=== PATIENT | female | born 1970 | race Caucasian/White ===

== ENCOUNTER 2017-08-03 09:52 | Emergency (ER) | payer SELFPAY ==
[2017-08-03 10:18] LABS: Absolute Lymphocytes (CBC) 1.6 K/uL (0.7-4.9); Absolute Monocytes 0.6 K/uL (0.1-1.3); Absolute Neutrophil 1.5 K/uL (1.8-8.0); Basophils % 0.2 % (0-1.3); Eosinophils % 6.9 % (0-4.4); Hematocrit 34.6 % (36.0-45.0); Lymphocytes % 40.6 % (15.3-44.8); MCH 29.3 pg (27.0-35.0); MCV 87.9 fL (80-100); MPV 8.9 fL (7.6-11.3); Monocytes % 14.1 % (3.3-12.3); RBC Red Blood Cell Count 3.93 M/uL (3.86-4.86)
[2017-08-03 10:21] LABS: Urine Blood NEGATIVE (NEG); Urine Glucose NEGATIVE (NEG); Urine Protein NEGATIVE (NEG)
[2017-08-03 10:24] LABS: Protime INR 0.97
[2017-08-03 10:26] LABS: Magnesium 1.8 mg/dL (1.8-2.5); Potassium 4.3 mEq/L (3.6-5.0)
--- NOTE | 2017-08-03 11:16 | RAD REPORT ---
EXAM DESCRIPTION: RAD - Chest Single View - 08/03/2017 10:31 am CLINICAL HISTORY: Chest pain radiating to the jaw COMPARISON: None. TECHNIQUE: AP portable chest image was obtained 1029 hours . FINDINGS: Lungs are clear. Heart and vasculature are normal. No measurable pleural effusion and no p neumothorax. No gross bony abnormality seen. No acute aortic findings suspected. IMPRESSION: No acute cardiopulmonary process.
--- NOTE | 2017-08-03 11:17 | ER ---
Nurse's Notes [facility] Name: Yumiko Castañeda Age: 47 yrs Sex: Female : 1970 Arrival Date: 08/03/2017 Time: 09:50 Bed 18 Private MD: Diagnosis: Chest pain, unspecified Presentation: 08/03 09:50 Presenting complaint: EMS states: chest pain started today at 0915, Jaw pain for the ch past few days. took asa 324 from her daughter prior to ems arrival. Transition of care: patient was not received from another setting of care. Onset of symptoms was August 03, 2017 at 09:15. Initial Sepsis Screen: Does the patient meet any 2 criteria? No. Patient's initial sepsis screen is negative. Does the patient have a suspected source of infection? No. Patient's initial sepsis screen is negative. Care prior to arrival: None. 09:50 Method Of Arrival: EMS: [facility] 09:50 Acuity: LARISSA 3 ch Triage Assessment: 09:50 General: Appears in no apparent distress. comfortable, Behavior is calm, cooperative, ch appropriate for age. Pain: Complains of pain in chest. Cardiovascular: Reports chest pain. 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 Pneumococcal vaccine is not up to date, Flu vaccine is not up to date. - Social history:: Smoking status: Patient uses tobacco products. Screenin:11 Abuse screen: Denies threats or abuse. Denies injuries from another. Nutritional ch screening: No deficits noted. Tuberculosis screening: No symptoms or risk factors identified. Fall Risk None identified. Assessment: 11:33 Reassessment: Patient appears in no apparent distress at this time. Patient and/or ch family updated on plan of care and expected duration. Pain level reassessed. Patient is alert, oriented x 3, equal unlabored respirations, skin warm/dry/pink. hospitalist in room with pt now Patient denies pain at this time. Patient states feeling better. Patient states symptoms have improved. 13:30 Also complains of no other symptoms. Reassessment: Patient appears in no apparent ch distress at this time. Patient and/or family updated on plan of care and expected duration. Pain level reassessed. Patient is alert, oriented x 3, equal unlabored respirations, skin warm/dry/pink. Patient denies pain at this time. Patient states feeling better. Patient states symptoms have improved. 14:51 Reassessment: Patient appears in no apparent distress at this time. Patient and/or ch family updated on plan of care and expected duration. Pain level reassessed. Patient is alert, oriented x 3, equal unlabored respirations, skin warm/dry/pink. Patient states feeling better. Patient states symptoms have improved. Pain: Pain does not radiate. Pain currently is 0 out of 10 on a pain scale. Pain began suddenly. 14:53 Reassessment: Patient appears in no apparent distress at this time. Dr. Hernandez contacted about pt labs. awaiting return call. 15:11 Reassessment: Patient appears in no apparent distress at this time. Patient and/or ch family updated on plan of care and expected duration. Pain level reassessed. Patient is alert, oriented x 3, equal unlabored respirations, skin warm/dry/pink. Dr. Hernandez notified about pt status and lab results, states pt is to be discharged home. Vital Signs: 09:50 BP 139 / 92; Pulse 74; Resp 14; Temp 97.2; Pulse Ox 98% on R/A; Weight 77.11 kg; Height 5 ft. 2 in. (157.48 cm); Pain 2/10; 10:58 BP 125 / 85; Pulse 68; Resp 14; Pulse Ox 99% on R/A; Pain 0/10; ch 12:00 BP 118 / 76; Pulse 62; Resp 14; Temp 98.3; Pulse Ox 99% on R/A; Pain 0/10; ch 13:30 BP 132 / 84; Pulse 63; Resp 18; Temp 98.8; Pulse Ox 99% on R/A; Pain 0/10; ch 14:53 BP 114 / 82; Pulse 68; Resp 18; Temp 98.3; Pulse Ox 99% on R/A; Pain 0/10; ch 15:11 BP 122 / 65; Pulse 62; Resp 18; Temp 98.8; Pulse Ox 99% on R/A; Pain 0/10; ch 09:50 Body Mass Index 31.09 (77.11 kg, 157.48 cm) ED Course: 09:50 Patient arrived in ED. ch 09:50 Arm band placed on left wrist. Patient placed in an exam room, on a stretcher, on manager monitoring, on pulse oximetry. 09:51 Triage completed. 09:52 Ann-Marie Corado FNP-C is [facility]. kb 09:52 Kvng Wells MD is Attending Physician. kb 10:00 EKG completed in triage. Results shown to MD. ch 10:10 Patient has correct armband on for positive identification. Placed in gown. Bed in low ch position. Call light in reach. Side rails up X 1. Adult w/ patient. court monitor on. Pulse ox on. NIBP on. 10:10 No provider procedures requiring assistance completed. Inserted saline lock: 22 gauge ch in right upper arm, using aseptic technique. Blood collected. Patient maintains SpO2 saturation greater than 95% on room air. 10:24 Enma Ruano, RN is Primary Nurse. 10:30 X-ray completed. Portable x-ray completed in exam room. Patient tolerated procedure la2 well. 10:30 XRAY Chest (1 view) In Process Unspecified. EDMS 11:16 Rhiannon Hernandez MD is Hospitalizing Provider. kb 14:42 Trevon Acosta MD is Referral Physician. kb 15:13 No apparent distress. Resting quietly. ch 15:13 IV discontinued, intact, bleeding controlled, No redness/swelling at site. Pressure ch dressing applied. Administered Medications: No medications were administered Outcome: 11:16 Decision to Hospitalize by Provider. kb 14:42 Discharge ordered by . kb 15:13 Discharged to home ambulatory, with family. ch 15:13 Condition: stable 15:13 Discharge instructions given to patient, family, Instructed on discharge instructions, follow up and referral plans. Demonstrated understanding of instructions, follow-up care. 15:13 Patient left the ED. Signatures: Dispatcher [employer] EDMN Ann-Marie Corado FNP-C FNP-Enma Nelson RN RN Lesly Woodruff la2 Corrections: (The following items were deleted from the chart) 10:25 09:50 LMP N/A - Post-menopause ch ch
--- NOTE | 2017-08-03 11:17 | EDPHYS ---
Physician Documentation [facility] Name: Yumiko Castañeda Age: 47 yrs Sex: Female : 1970 Arrival Date: 08/03/2017 Time: 09:50 Bed 18 Private MD: ED Physician Kvng Wells HPI: 08/03 10:16 This 47 yrs old Female presents to ER via EMS with complaints of Chest Pain. kb 10:16 The patient or guardian reports chest pain that is located primarily in the anterior kb chest wall, left. Onset: this morning. The pain does not radiate. Associated signs and symptoms: Pertinent positives: shortness of breath, Pertinent negatives: abdominal pain, cough, diaphoresis, dizziness, headache, lower extremity pain, lower extremity swelling, lightheadedness, nausea, near syncope, palpitations, recent travel, syncope, vomiting. The chest pain is described as tightness. Duration: The patient or guardian reports a single episode, that is now resolved, that lasted 30 minute(s). Modifying factors: The symptoms are alleviated by nothing. the symptoms are aggravated by nothing. Severity of pain: At its worst the pain was mild moderate in the emergency department the pain is unchanged. The patient has experienced similar episodes in the past, several times, today's symptoms are similar, lasted longer today. The patient has not recently seen a physician. Pt states she was riding in the car and felt tightness to left side of chest. States it lasted for about 30 minutes, then subsided. Has had similar "episodes" in the past, but they didn't last as long so she got worried about this one. 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 Pneumococcal vaccine is not up to date, Flu vaccine is not up to date. - Social history:: Smoking status: Patient uses tobacco products. ROS: 10:11 Constitutional: Negative for fever, chills, and weight loss, ENT: Negative for injury, kb pain, and discharge, Neck: Negative for injury, pain, and swelling, Abdomen/GI: Negative for abdominal pain, nausea, vomiting, diarrhea, and constipation, Back: Negative for injury and pain, : Negative for injury, bleeding, discharge, and swelling, MS/Extremity: Negative for injury and deformity, Skin: Negative for injury, rash, and discoloration, Neuro: Negative for headache, weakness, numbness, tingling, and seizure. 10:11 Cardiovascular: Positive for chest pain, Negative for edema, orthopnea, palpitations, paroxysmal nocturnal dyspnea. 10:11 Respiratory: Positive for shortness of breath, Negative for cough, dyspnea on exertion, hemoptysis, orthopnea, pleurisy, sputum production, wheezing. Exam: 10:14 Constitutional: This is a well developed, well nourished patient who is awake, alert, kb and in no acute distress. Head/Face: Normocephalic, atraumatic. Chest/axilla: Normal chest wall appearance and motion. Nontender with no deformity. No lesions are appreciated. Cardiovascular: Regular rate and rhythm with a normal S1 and S2. No gallops, murmurs, or rubs. Normal PMI, no JVD. No pulse deficits. Respiratory: Lungs have equal breath sounds bilaterally, clear to auscultation and percussion. No rales, rhonchi or wheezes noted. No increased work of breathing, no retractions or nasal flaring. Abdomen/GI: Soft, non-tender, with normal bowel sounds. No distension or tympany. No guarding or rebound. No evidence of tenderness throughout. Back: No spinal tenderness. No costovertebral tenderness. Full range of motion. Skin: Warm, dry with normal turgor. Normal color with no rashes, no lesions, and no evidence of cellulitis. MS/ Extremity: Pulses equal, no cyanosis. Neurovascular intact. Full, normal range of motion. Neuro: Awake and alert, GCS 15, oriented to person, place, time, and situation. Cranial nerves II-XII grossly intact. Motor strength 5/5 in all extremities. Sensory grossly intact. Cerebellar exam normal. Normal gait. Vital Signs: 09:50 BP 139 / 92; Pulse 74; Resp 14; Temp 97.2; Pulse Ox 98% on R/A; Weight 77.11 kg; Height ch 5 ft. 2 in. (157.48 cm); Pain 2/10; 10:58 BP 125 / 85; Pulse 68; Resp 14; Pulse Ox 99% on R/A; Pain 0/10; ch 12:00 BP 118 / 76; Pulse 62; Resp 14; Temp 98.3; Pulse Ox 99% on R/A; Pain 0/10; ch 13:30 BP 132 / 84; Pulse 63; Resp 18; Temp 98.8; Pulse Ox 99% on R/A; Pain 0/10; ch 14:53 BP 114 / 82; Pulse 68; Resp 18; Temp 98.3; Pulse Ox 99% on R/A; Pain 0/10; ch 15:11 BP 122 / 65; Pulse 62; Resp 18; Temp 98.8; Pulse Ox 99% on R/A; Pain 0/10; ch 09:50 Body Mass Index 31.09 (77.11 kg, 157.48 cm) ch MDM: 09:53 Patient medically screened. kb 10:13 Data reviewed: vital signs, nurses notes. Data interpreted: Pulse oximetry: on room air kb is 100 %. Interpretation: normal. 10:23 The patient was not given aspirin in the Emergency Department. Patient reports taking kb aspirin within the past 24 hours. 11:02 LAW Risk Score: TOTAL SCORE = 0. kb 11:02 ED course: HEART score 2 due to age and paternal history. . kb 11:03 Counseling: I had a detailed discussion with the patient and/or guardian regarding: the kb historical points, exam findings, and any diagnostic results supporting the discharge/admit diagnosis, lab results, radiology results, the need for further work-up and treatment in the hospital. 14:15 ED course: Pt was seen by Dr Matamoros. Dr Matamoros spoke with Dr Acosta about pt's condition kb and diagnostics. Both in agreement that pt needs a 4 hour repeat troponin and EKG, then (if wnl) can be discharged home to follow up with Dr Acosta on Saturday as an outpatient. . 08/03 09:53 Order name: Basic Metabolic Panel; Complete Time: 10:35 kb 08/03 09:53 Order name: BNP; Complete Time: 10:51 kb 08/03 09:53 Order name: CBC with Diff; Complete Time: 10:24 kb 08/03 09:53 Order name: Magnesium; Complete Time: 10:35 kb 08/03 09:53 Order name: PT-INR; Complete Time: 10:35 kb 08/03 09:53 Order name: Ptt, Activated; Complete Time: 10:35 kb 08/03 09:53 Order name: Urine Test (obtain specimen); Complete Time: 10:24 kb 08/03 09:53 Order name: Troponin (emerg Dept Use Only); Complete Time: 10:35 kb 08/03 09:53 Order name: XRAY Chest (1 view); Complete Time: 11:17 kb 08/03 09:53 Order name: EKG; Complete Time: 09:54 kb 08/03 10:13 Order name: Urine Dipstick--Ancillary (enter results); Complete Time: 10:24 ag 08/03 10:13 Order name: Urine --Ancillary (enter results); Complete Time: 10:24 ag 08/03 14:04 Order name: Troponin (emerg Dept Use Only) ms 08/03 14:35 Order name: Troponin (Emerg Dept Use Only); Complete Time: 14:42 EDMS 08/03 09:53 Order name: Cardiac monitoring; Complete Time: 10:24 kb 08/03 09:53 Order name: EKG - Nurse/Tech; Complete Time: 10:24 kb 08/03 09:53 Order name: IV Saline Lock; Complete Time: 10:24 kb 08/03 09:53 Order name: Labs collected and sent; Complete Time: 10:24 kb 08/03 09:53 Order name: O2 Per Protocol; Complete Time: 10:24 kb 08/03 09:53 Order name: O2 Sat Monitoring; Complete Time: 10:24 kb 08/03 09:53 Order name: Urine Dipstick-Ancillary (obtain specimen); Complete Time: 10:24 kb Administered Medications: No medications were administered Disposition: 18:53 Co-signature as Attending Physician, Kvng Wells MD. Disposition: 08/03/17 14:42 Discharged to Home. Impression: Chest pain, unspecified. - Condition is Stable. - Discharge Instructions: Nonspecific Chest Pain, [id number]. - Medication Reconciliation Form, Thank You Letter, Antibiotic Education, Prescription Opioid Use form. - Follow up: Emergency Department; When: As needed; Reason: Worsening of condition. Follow up: Trevon Acosta MD; When: 2 - 3 days; Reason: Recheck today's complaints. Signatures: Dispatcher [employer] EDMS Ann-Marie Corado, ORION-Vicente SEARS-Enma Nelson, RN RN Kvng Wells MD MD Corrections: (The following items were deleted from the chart) 10:12 10:11 Abdomen/GI: Positive for nausea, Negative for abdominal pain, vomiting, diarrhea, kb constipation, abdominal cramps, abdominal distension, anorexia, kb 11:11 11:02 ED course: HEART score 2 due to age and paternal history . kb kb 14:42 11:16 Hospitalization Ordered by Rhiannon Matamoros MD for Observation. Preliminary diagnosis kb is Chest pain, unspecified. Bed requested for Telemetry/MedSurg (observation). Status is Observation. Condition is Stable. Problem is new. Symptoms have improved. UTI on Admission? No. kb 15:13 14:42 08/03/2017 14:42 Discharged to Home. Impression: Chest pain, unspecified. Condition is Stable. Forms are Medication Reconciliation Form, Thank You Letter, Antibiotic Education, Prescription Opioid Use. Follow up: Emergency Department; When: As needed; Reason: Worsening of condition. Follow up: Trevon Acosta; When: 2 - 3 days; Reason: Recheck today's complaints. kb
[2017-08-03 15:17] VITALS: O2SAT 99
[2017-08-03 15:23] VITALS: BP 122/65; TEMP 98.8
--- NOTE | 2017-08-03 15:36 | P.PN ---
Date of Service: 08/03/17 Called to see patient regarding chest pain. Patient is a 47-year-old female with no significant past medical history who quit smoking approximately 5 years ago has been having intermittent chest tightness over the past few months. Has taken by family members nitro in the past which has helped. Patient today had recurrence of this chest tightness and came in denies any nausea vomiting fever chills cough sputum production. No diaphoresis or palpitations. Patient's symptoms had resolved by the time she came into the ER. Patient's vital signs were stable her initial workup showed negative troponin and EKG showed normal sinus rhythm, no ST or T-wave changes. Spoke with lumber piler operator Dr. Acosta regarding the patient. He agreed with repeating troponin level after 4 hr which was negative. Patient's repeat EKG was normal no ST or T-wave changes. Okay to discharge and have outpatient follow up Patient was instructed to follow up with lumber piler operator as an outpatient. Return to ER for worsening symptoms or any other concerns. Physical exam Vital signs stable afebrile General awake alert oriented x3 in no acute distress, appears much older than stated age CV S1-S2 regular rate and rhythm per pulse is present bilaterally Respiratory clear to auscultation bilaterally no wheezing Gastrointestinal abdomen soft nontender nondistended positive bowel sounds Extremities no clubbing cyanosis edema Neuro nonfocal
--- NOTE | 2017-08-04 10:44 | EKG ---
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
== END 2017-08-03 15:13 | disposition home or self-care (01) ==
LOC: ER 09:52 → UNDOADMOB 11:13 → ERHOLD 11:13
DX: R07.9 Chest pain, unspecified (principal); Z95.818 Presence of other cardiac implants and grafts; Z72.0 Tobacco use
CPT/HCPCS: 36415; 71045; 80048; 81003; 81025; 83735; 83880; 84484; 85025; 85610; 85730; 93005; 99285

== ENCOUNTER 2017-08-06 09:01 | Observation (INO) | payer SELFPAY ==
[2017-08-06] MEDS ORDERED: NITROGLYCERIN 0.4 MG/TAB SL ONE (09:33)
[2017-08-06 09:39] LABS: Absolute Lymphocytes (CBC) 1.7 K/uL (0.7-4.9); Absolute Monocytes 0.5 K/uL (0.1-1.3); Basophils % 1.1 % (0-1.3); Eosinophils % 7.7 % (0-4.4); Hematocrit 35.7 % (36.0-45.0); Lymphocytes % 30.1 % (15.3-44.8); MCH 29.6 pg (27.0-35.0); MCV 87.4 fL (80-100); MPV 8.8 fL (7.6-11.3); Monocytes % 8.2 % (3.3-12.3); RBC Red Blood Cell Count 4.09 M/uL (3.86-4.86)
[2017-08-06 10:01] LABS: CKMB Creatine Kinase MB 1.9 ng/ml (0.3-4.0)
--- NOTE | 2017-08-06 10:25 | RAD REPORT ---
EXAM DESCRIPTION: RAD - Chest Single View - 08/06/2017 9:57 am CLINICAL HISTORY: Chest pain. COMPARISON: 08/03/2017 FINDINGS: Portable technique limits examination quality. The lungs are grossly clear. The heart is normal in size. No displaced fractures. IMPRESSION: No acute intrathoracic process suspected.
--- NOTE | 2017-08-06 10:25 | ER ---
Nurse's Notes [facility] Name: Yumiko Castañeda Age: 47 yrs Sex: Female : 1970 Arrival Date: 08/06/2017 Time: 09:04 Bed 13 Private MD: Diagnosis: Chest pain, unspecified Presentation: 08/06 09:12 Presenting complaint: Patient states: chest pain/pressure started at 0300 this morning, ch woke me up out of my sleep. I have been congested with a slight cough since last Saturday. headache in the front of my head, feels like a migraine. I was seen here Saturday for this as well and it was negative. Transition of care: patient was not received from another setting of care. Onset of symptoms was August 06, 2017 at 03:00. Risk Assessment: Do you want to hurt yourself or someone else? Patient reports no desire to harm self or others. Initial Sepsis Screen: Does the patient meet any 2 criteria? No. Patient's initial sepsis screen is negative. Does the patient have a suspected source of infection? No. Patient's initial sepsis screen is negative. Care prior to arrival: None. 09:12 Method Of Arrival: Wheelchair 09:12 Acuity: LARISSA 3 ch Triage Assessment: 09:16 General: Appears in no apparent distress. comfortable, Behavior is calm, cooperative, ch appropriate for age. Pain: Complains of pain in top of head, forehead, right eye, right cheek, left cheek, left eye, right sikhism, left sikhism, left frontal area, left side of forehead, left temporal area, right frontal area, right temporal area, right side of forehead and chest Pain radiates to left supraclavicular area, left clavicle, anterior aspect of left shoulder, back of neck and posterior chest Pain currently is 3 out of 10 on a pain scale. at worst was 8 out of 10 on a pain scale. Cardiovascular: Heart tones S1 S2 present Capillary refill < 3 seconds in bilateral fingers toes Clubbing of nail beds is absent Patient's skin is warm and dry. pt has thick discolored nails randa fingers and toes.. Cardiovascular: Pulses are all present. Edema is absent. Respiratory: Reports shortness of breath on exertion Airway is patent Respiratory effort is even, unlabored, Breath sounds are coarse bilaterally. : No signs and/or symptoms were reported regarding the genitourinary system. Derm: Skin is intact, Skin is jaundiced, pt appears very tanned or slightly jaundiced. Musculoskeletal: Circulation, motion, and sensation intact. 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 Flu vaccine is not up to date. - Social history:: Smoking status: Patient/guardian denies using tobacco. - Family history:: not pertinent. - Hospitalizations: : No recent hospitalization is reported. Screenin:19 Abuse screen: Denies threats or abuse. Denies injuries from another. Nutritional ch screening: No deficits noted. Tuberculosis screening: No symptoms or risk factors identified. Fall Risk None identified. Assessment: 09:19 Reassessment: Patient appears in no apparent distress at this time. Patient and/or ch family updated on plan of care and expected duration. Pain level reassessed. Patient is alert, oriented x 3, equal unlabored respirations, skin warm/dry/pink. 10:41 Reassessment: pt states she feels much better after nitro. General: Appears in no ch apparent distress. comfortable, Behavior is calm, cooperative, appropriate for age. Pain: Denies pain. Neuro: Level of Consciousness is awake, alert, obeys commands, Oriented to person, place, time, situation. Respiratory: Airway is patent Respiratory effort is even, unlabored. 11:13 Reassessment: Patient appears in no apparent distress at this time. No changes from previously documented assessment. Patient and/or family updated on plan of care and expected duration. Pain level reassessed. Patient is alert, oriented x 3, equal unlabored respirations, skin warm/dry/pink. Patient denies pain at this time. Patient states feeling better. Patient states symptoms have improved. 11:49 Reassessment: Patient appears in no apparent distress at this time. Patient and/or ch family updated on plan of care and expected duration. Pain level reassessed. Patient is alert, oriented x 3, equal unlabored respirations, skin warm/dry/pink. 12:17 Reassessment: Patient appears in no apparent distress at this time. Patient and/or ch family updated on plan of care and expected duration. Pain level reassessed. Patient is alert, oriented x 3, equal unlabored respirations, skin warm/dry/pink. floor notified at 1200 I would try to call report around 1215. nurse is getting a patient now from ICU, states she will call me back. awaiting return call. Vital Signs: 09:16 BP 157 / 97; Pulse 78; Resp 16; Pulse Ox 98% on R/A; Pain 3/10; ch 10:41 BP 110 / 76; Pulse 72; Resp 18; Temp 98.3; Pulse Ox 99% on R/A; Pain 0/10; ch 11:13 BP 121 / 58; Pulse 68; Resp 15; Temp 97.8; Pulse Ox 99% on R/A; Pain 0/10; ch 12:10 BP 134 / 90; Pulse 82; Resp 20; Pulse Ox 100% on R/A; mh5 ED Course: 09:04 Patient arrived in ED. mr 09:07 Elan Segura MD is Attending Physician. rn 09:12 Enma Ruano, CYNTHIA is Primary Nurse. ch 09:15 Triage completed. 09:16 Arm band placed on left wrist. 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 09:19 No apparent distress. Resting quietly. ch 09:19 Patient has correct armband on for positive identification. Placed in gown. Bed in low ch position. Call light in reach. Side rails up X 1. Adult w/ patient. jumpbasting lining baster on. Pulse ox on. NIBP on. Warm blanket given. 09:19 No provider procedures requiring assistance completed. Patient maintains SpO2 ch saturation greater than 95% on room air. 09:51 X-ray completed. Portable x-ray completed in exam room. Patient tolerated procedure mh1 well. 09:57 XRAY Chest (1 view) In Process Unspecified. EDMS 09:58 EKG done, by ED staff. tc 10:24 Cali Kearney DO is Hospitalizing Provider. rn 10:35 EKG done, by ED staff, reviewed by Elan Segura MD. [facility] 10:41 Inserted saline lock: 22 gauge in right forearm, using aseptic technique. Blood ch collected. Patient admitted, IV remains in place. 12:59 Patient admitted, IV remains in place. intact, No redness/swelling at site. ed1 Administered Medications: 10:15 Drug: Nitroglycerin 0.4 mg Route: Sublingual; ch 10:41 Follow up: Response: No adverse reaction; Marked relief of symptoms ch Outcome: 10:24 Decision to Hospitalize by Provider. rn 12:56 Admitted to Tele accompanied by moose, via wheelchair, room 423, with chart, Report ed1 called to CYNTHIA Chavis 12:56 Condition: good 12:56 Discharge instructions given to patient, Instructed on the need for admit, Demonstrated understanding of instructions. 13:00 Patient left the ED. ed1 Signatures: Dispatcher [employer] Enma Fang RN RN ch Rivera, Maria mr Reid Laurence [facility] Elan Segura MD MD rn Shannan Kaplan, TECHNOLOGY INFUSION SPECIALIST TECHNOLOGY INFUSION SPECIALIST ed1 Angy Cannon, captain of guards EKG [facility] Adelia Ennis [facility]
--- NOTE | 2017-08-06 10:25 | EDPHYS ---
Physician Documentation [facility] Name: Yumiko Castañeda Age: 47 yrs Sex: Female : 1970 Arrival Date: 08/06/2017 Time: 09:04 Bed 13 Private MD: ED Physician Elan Segura HPI: 08/06 10:07 This 47 yrs old Female presents to ER via Wheelchair with complaints of Chest rn Pain, Back Pain. 10:07 The patient or guardian reports chest pain that is located primarily in the substernal rn area. Onset: at 03:00. The pain radiates to The chest pain is described as squeezing. Duration: The patient or guardian reports multiple episodes, that are intermittent. Severity of pain: At its worst the pain was moderate in the emergency department the pain has improved. The patient has experienced similar episodes in the past. Reports told had blockage in heart in past, reports increased frequency of chest pain lately, seen here a few days ago, chest pain returned, improves with aspirin and nitro. No fever. . 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 Flu vaccine is not up to date. - Social history:: Smoking status: Patient/guardian denies using tobacco. - Family history:: not pertinent. - Hospitalizations: : No recent hospitalization is reported. ROS: 10:07 Constitutional: Negative for fever, chills, and weight loss, Eyes: Negative for injury, rn pain, redness, and discharge, Neck: Negative for injury, pain, and swelling, Cardiovascular: Negative for palpitations, and edema, Respiratory: Negative for wheezing, and pleuritic chest pain, Abdomen/GI: Negative for abdominal pain, vomiting, diarrhea, and constipation, Back: Negative for injury MS/Extremity: Negative for injury and deformity, Skin: Negative for injury, rash, and discoloration, Neuro: Negative for headache, weakness, numbness, tingling, and seizure. Exam: 10:07 Constitutional: This is a well developed, well nourished patient who is awake, alert, rn and in no acute distress. Head/Face: Normocephalic, atraumatic. Eyes: Pupils equal round and reactive to light, extra-ocular motions intact. Lids and lashes normal. Conjunctiva and sclera are non-icteric and not injected. Cornea within normal limits. Periorbital areas with no swelling, redness, or edema. Neck: Trachea midline, no thyromegaly or masses palpated, and no cervical lymphadenopathy. Supple, full range of motion without nuchal rigidity, or vertebral point tenderness. No Meningismus. Cardiovascular: Regular rate and rhythm with a normal S1 and S2. No gallops, murmurs, or rubs. Normal PMI, no JVD. No pulse deficits. Respiratory: Lungs have equal breath sounds bilaterally, clear to auscultation and percussion. No rales, rhonchi or wheezes noted. No increased work of breathing, no retractions or nasal flaring. Abdomen/GI: Soft, non-tender, with normal bowel sounds. No distension or tympany. No guarding or rebound. No evidence of tenderness throughout. MS/ Extremity: Pulses equal, no cyanosis. Neurovascular intact. Full, normal range of motion. Equal circumference. Neuro: Awake and alert, GCS 15, oriented to person, place, time, and situation. Cranial nerves II-XII grossly intact. Motor strength 5/5 in all extremities. Sensory grossly intact. Vital Signs: 09:16 BP 157 / 97; Pulse 78; Resp 16; Pulse Ox 98% on R/A; Pain 3/10; ch 10:41 BP 110 / 76; Pulse 72; Resp 18; Temp 98.3; Pulse Ox 99% on R/A; Pain 0/10; ch 11:13 BP 121 / 58; Pulse 68; Resp 15; Temp 97.8; Pulse Ox 99% on R/A; Pain 0/10; ch 12:10 BP 134 / 90; Pulse 82; Resp 20; Pulse Ox 100% on R/A; mh5 MDM: 09:07 Patient medically screened. rn 10:23 Differential diagnosis: abnormal EKG, acute myocardial infarction, acute pericarditis, rn anxiety, coronary artery disease costochondritis, pericarditis, pleurisy, pneumothorax, pulmonary embolus, stable angina, unstable angina. The patient was given aspirin in the Emergency Department. Data reviewed: vital signs, nurses notes, lab test result(s), EKG, radiologic studies, plain films. Counseling: I had a detailed discussion with the patient and/or guardian regarding: the historical points, exam findings, and any diagnostic results supporting the discharge/admit diagnosis, lab results, radiology results, the need for further work-up and treatment in the hospital. Admission orders: after a detailed discussion of the patient's condition and case, the admit orders are written by me. ED course: Chest pain resolved with single nitro.. 08/06 09:23 Order name: Basic Metabolic Panel; Complete Time: 10:04 rn 08/06 09:23 Order name: BNP rn 08/06 09:23 Order name: CBC with Diff; Complete Time: 09:59 rn 08/06 09:23 Order name: Ckmb; Complete Time: 10:04 rn 08/06 09:23 Order name: CPK; Complete Time: 10:04 rn 08/06 09:23 Order name: Troponin (emerg Dept Use Only); Complete Time: 09:59 rn 08/06 09:23 Order name: XRAY Chest (1 view); Complete Time: 10:26 rn 08/06 09:23 Order name: EKG; Complete Time: 09:24 rn 08/06 09:23 Order name: Cardiac monitoring; Complete Time: 09:33 rn 08/06 09:23 Order name: EKG - Nurse/Tech; Complete Time: 09:33 rn 08/06 09:23 Order name: IV Saline Lock; Complete Time: 09:34 rn 08/06 11:53 Order name: Urine Dipstick--Ancillary (enter results) bd 08/06 11:53 Order name: Urine --Ancillary (enter results) bd 08/06 09:23 Order name: Labs collected and sent; Complete Time: 09:34 rn 08/06 09:23 Order name: O2 Per Protocol; Complete Time: 09:34 rn 08/06 09:23 Order name: O2 Sat Monitoring; Complete Time: 09:34 rn Administered Medications: 10:15 Drug: Nitroglycerin 0.4 mg Route: Sublingual; ch 10:41 Follow up: Response: No adverse reaction; Marked relief of symptoms ch Disposition: 08/06/17 10:24 Hospitalization ordered by Cali Kearney for Observation. Preliminary diagnosis is Chest pain, unspecified. - Bed requested for Telemetry/MedSurg (observation). - Status is Observation. ed1 - Condition is Stable. - Problem is new. - Symptoms have improved. UTI on Admission? No Signatures: Dispatcher [employer] EDMS Orquidea Rajan Enma Concepcion, Elan Finley RN, ch, MD MD rn Riggs, Shannan, CEMENT TESTER ASSISTANT CEMENT TESTER ASSISTANT ed1 Corrections: (The following items were deleted from the chart) 10:09 10:07 Constitutional: Negative for fever, chills, and weight loss, Eyes: Negative for rn injury, pain, redness, and discharge, Neck: Negative for injury, pain, and swelling, Cardiovascular: Negative for palpitations, and edema, Respiratory: Negative for wheezing, and pleuritic chest pain, Abdomen/GI: Negative for abdominal pain, vomiting, diarrhea, and constipation, Back: Negative for injury and pain, MS/Extremity: Negative for injury and deformity, Skin: Negative for injury, rash, and discoloration, Neuro: Negative for headache, weakness, numbness, tingling, and seizure, rn 11:44 10:24 Hospitalization Ordered by Cali Kearney DO for Observation. Preliminary bd diagnosis is Chest pain, unspecified. Bed requested for Telemetry/MedSurg (observation). Status is Observation. Condition is Stable. Problem is new. Symptoms have improved. UTI on Admission? No. rn 13:00 11:44 08/06/2017 10:24 Hospitalization Ordered by Cali Kearney DO for Observation. ed1 Preliminary diagnosis is Chest pain, unspecified. Bed requested for Telemetry/MedSurg (observation). Status is Observation. Condition is Stable. Problem is new. Symptoms have improved. UTI on Admission? No. bd
[2017-08-06] MEDS ORDERED: ONDANSETRON 4 MG/2 ML VIAL IV PRN (10:42)
[2017-08-06] MEDS ORDERED: Morphine 2 MG/2 ML SYR IV PRN (10:42)
[2017-08-06] MEDS ORDERED: TRAMADOL HCL 50 MG TAB PO PRN (10:42)
[2017-08-06] MEDS ORDERED: NITROGLYCERIN 0.4 MG/TAB SL PRN (10:42)
--- NOTE | 2017-08-06 10:53 | P.HP ---
Certification for Inpatient Patient admitted to: Observation With expected LOS: <2 Midnights Patient will require the following post-hospital care: None Practitioner: I am a practitioner with admitting privileges, knowledge of patient current condition, hospital course, and medical plan of care. Services: Services provided to patient in accordance with Admission requirements found in Title 42 Section 412.3 of the Code of Federal Regulations Patient History Date of Service: 08/06/17 Primary Care Provider: None(Visiting from [place], [place]) Reason for admission: Chest pain History of Present Illness: 47-year-old female presented emergency room with chest pain. The patient reported chest pain this morning. The chest pain was mainly to the left side. It felt like pen and needles. It was sharp. It was associated with some headaches. She denied any significant nausea, vomiting, lightheadedness or shortness of breath. There was no radiation. The chest pain lasted for several min. Patient is visiting in the area. Patient reports a history of CAD in the past. She had a heart catheterization 10 years ago while she was incarcerated. She was told that she had some disease but no stent was required. Patient came to the ER. In the ER she was given nitro. Chest pain improved. Vital signs stable. On lab initial troponin unremarkable at <0.03. BNP 138. GFR 82. Glucose 105, white count 5.6, hemoglobin 12. Due to the nature of her symptoms the patient was admitted for observation. When I saw the patient, she was without any chest pain. Patient reports a history of CAD without any stent needed about 10 years ago while she was incarcerated. Patient reports only taking aspirin daily. She does not smoke or drink. There is a family history of heart disease. Allergies No Known Allergies Allergy (Unverified 08/03/17 15:18) Home medications list reviewed: Yes - Past Medical/Surgical History -: CAD, heart catheterization 10 years ago. No stent required -: -: Kidney stent Psychosocial/ Personal History: The patient is a . She has 3 children. She does not work. - Family History Father -: Heart disease, Hypertension Mother -: Diabetes - Social History Smoking Status: Never smoker Alcohol use: No CD- Drugs: No Caffeine use: Yes Place of Residence: Home Review of Systems General: As per HPI Eyes: Unremarkable ENT: Unremarkable Respiratory: Unremarkable Cardiovascular: Chest Pain, As per HPI Gastrointestinal: Unremarkable Genitourinary: Unremarkable Musculoskeletal: Unremarkable Integumentary: Unremarkable Neurological: Unremarkable Lymphatics: Unremarkable Physical Examination - Physical Exam General: Alert, In no apparent distress, Oriented x3, Cooperative HEENT: Atraumatic, Normocephalic, PERRLA, Mucous membr. moist/pink Neck: Supple, No Thyromegaly Respiratory: Clear to auscultation bilaterally, Normal air movement Cardiovascular: Normal pulses, Regular rate/rhythm Gastrointestinal: Normal bowel sounds, Soft and benign, Non-distended, No tenderness, No masses, No rebound, No guarding Musculoskeletal: No erythema, No tenderness, No warmth Integumentary: No tenderness/swelling, No erythema, No warmth, No cyanosis Neurological: Normal speech, Normal strength at 5/5 x4 extr, Normal tone, Normal affect - Studies Laboratory Data (last 24 hrs) 08/06/17 09:30: WBC 5.6 D, Hgb 12.1, Hct 35.7 L, Plt Count 207 08/06/17 09:30: B-Natriuretic Peptide 138 H 08/06/17 09:30: Sodium 136, Potassium 4.0, BUN 15, Creatinine 0.75, Glucose 105 Assessment and Plan - Problems (Diagnosis) (1) Chest pain Current Visit: Yes Status: Acute Plan: Will monitor closely on Telemetry. Will obtain ECHO. Cardiology consulted. Blood pressure stable this time. Will monitor electrolytes. Patient on aspirin , nitro, and statin medication. Await recommendations by Cardiology. Patient with history of heart catheterization 10 years ago. She was told that she had some disease but no stent required. Qualifiers: Chest pain type: unspecified Qualified Code(s): R07.9 - Chest pain, unspecified (2) CAD (coronary artery disease) Current Visit: Yes Status: Chronic Plan: As above Qualifiers: Coronary Disease-Associated Artery/Lesion type: unspecified vessel or lesion type [place] vs. transplanted heart: unspecified whether enterprise or transplanted heart Associated angina: angina presence unspecified Qualified Code(s): I25.10 - Atherosclerotic heart disease of [place] coronary artery without angina pectoris Discharge Plan: Home Plan to discharge in: 24 Hours - Advance Directives Does patient have a Living Will: No Does patient have a Durable POA for Healthcare: No - Code Status/Comfort Care Code Status Assessed: Yes Time Spent Managing Pts Care (In Minutes): 55
--- NOTE | 2017-08-06 12:27 | EKG ---
Test Date: 2017-08-06 Test Time: 09:55:21 [place] Coiler Hand: ELIDA MEASUREMENT RESULTS: Intervals: Rate: 69 UT: 180 QRSD: 86 QT: 398 QTc: 426 [place]: P: 70 UT: 180 QRS: 53 T: 48 INTERPRETIVE STATEMENTS: Normal sinus rhythm Normal ECG Compared to ECG 08/03/2017 10:00:34 No significant changes Electronically Signed On 08-06-17 12:25:43 CDT by Trevon Acosta
[2017-08-06 13:35] VITALS: BMI 30.8
[2017-08-06] MEDS: ACETAMINOPHEN 500 MG TAB PO PRN ×2 (13:51→19:00)
[2017-08-06 15:30] LABS: Urine Blood NEGATIVE (NEG); Urine Glucose NEGATIVE (NEG); Urine Protein NEGATIVE (NEG); Urine Specific Gravity 1.015 (1.005-1.030)
[2017-08-06 16:30] LABS: CKMB Creatine Kinase MB 1.4 ng/ml (0.3-4.0)
[2017-08-06] MEDS ORDERED: ENOXAPARIN 40 MG/0.4 ML SQ SCH (17:00)
[2017-08-06] MEDS ORDERED: ATORVASTATIN 40 MG TAB PO SCH (21:00)
[2017-08-06 22:11] VITALS: O2SAT 98
--- NOTE | 2017-08-07 00:58 | CON ---
Date of Consultation: 08/06/2017 Reason For Consultation: Chest pain. History Of Present Illness: Ms. Castañeda is a 47-year-old woman without really any past medical hist ory of any significance. Apparently 10 years ago, she had a heart catheterization. She was told she had minimal coronary artery disease, no intervention was done, has been taking aspirin since. She h ad these episodes every 3-4 years, but this time she had a sharp stabbing pain in her lower back that radiated to the left jaw initially and then it became pressure like, lasted almost an hour, some jean[place]pierre sea but no vomiting, diaphoresis, PND, orthopnea, pedal edema, palpitations, or syncope. By the time I saw her, she has had a normal EKG, chest x-ray, troponin, CPKs, MBs, as well as BNP. Allergies: NONE. Review of Systems: Negative. Social History: Negative. Family History: Negative. Medications: Include aspirin. Physical Examination: Vital Signs: Stable, afebrile. HEENT: Negative. Neck: Supple without any bruit, lymphadenopathy, JVD, or thyromegaly. Chest: Clear to auscultation and percussion. Cardiac: Exam revealed a regular rhythm and rate without any murmurs, gallops, or rubs. Abdomen: Benign. Extremities: Revealed no clubbing, cyanosis, or edema. Diagnostic Data: All negative. Impression And Plan: Atypical chest pain, most likely musculoskeletal. Echocardiogram has been done and is normal. We will order a Lexiscan in the morning to rule out CAD. Continue present regimen. ZENAIDA/JUDY Voice ID: [id number] Report ID: [id number]
[2017-08-07 01:53] LABS: CKMB Creatine Kinase MB 1.2 ng/ml (0.3-4.0)
[2017-08-07 06:41] LABS: Absolute Lymphocytes (CBC) 1.4 K/uL (0.7-4.9); Absolute Monocytes 0.4 K/uL (0.1-1.3); Absolute Neutrophil 1.4 K/uL (1.8-8.0); Basophils % 5.1 % (0-1.3); Eosinophils % 12.8 % (0-4.4); Lymphocytes % 35.7 % (15.3-44.8); MCH 29.9 pg (27.0-35.0); MCV 86.8 fL (80-100); MPV 8.7 fL (7.6-11.3); Monocytes % 10.8 % (3.3-12.3); RBC Red Blood Cell Count 4.15 M/uL (3.86-4.86)
[2017-08-07] MEDS: ACETAMINOPHEN 500 MG TAB PO PRN (07:03)
[2017-08-07 07:30] LABS: Platelet Estimate ADEQ; Urine White Blood Cell Casts OK
[2017-08-07] MEDS ORDERED: PANTOPRAZOLE 40MG TABLET PO SCH (07:30)
[2017-08-07 07:31] LABS: Blood Morphology Comment NOT SEEN (NOT SEEN)
[2017-08-07 07:44] LABS: Potassium 4.7 mEq/L (3.6-5.0)
[2017-08-07 08:37] LABS: Thyroid Stimulating Hormone 1.07 uIU/mL (0.34-5.60)
[2017-08-07 08:38] LABS: Magnesium 2.1 mg/dL (1.8-2.5)
--- NOTE | 2017-08-07 08:41 | ECHO ---
HEIGHT: 5 ft 3 in WEIGHT: 174 lb 0 oz DATE OF STUDY: 08/06/[address]: Cali Kearney DO 2-DIMENSIONAL: YES M.MODE: YES DOPPLER: YES COLOR FLOW: YES TDS: NO PORTABLE: NO DEFINITY: NO BUBBLE STUDY: NO DIAGNOSIS: CHEST PAIN CARDIAC HISTORY: CATHERIZATION: NO SURGERY: NO PROSTHETIC VALVE: NO PACEMAKER: NO MEASUREMENTS (cm) DIASTOLIC (NORMALS) SYSTOLIC (NORMALS) IVSd 0.9 (0.6-1.2) LA Diam 3.3 (1.9-4.0) LVEF 60% LVIDd 4.7 (3.5-5.7) LVIDs 3.2 (2.0-3.5) %FS 32% LVPWd 0.8 (0.6-1.2) Ao Diam 2.7 (2.0-3.7) 2 DIMENSIONAL ASSESSMENT: RIGHT ATRIUM: NORMAL LEFT ATRIUM: NORMAL RIGHT VENTRICLE: NORMAL LEFT VENTRICLE: NORMAL TRICUSPID VALVE: NORMAL MITRAL VALVE: NORMAL PULMONIC VALVE: NORMAL AORTIC VALVE: NORMAL PERICARDIAL EFFUSION: NONE AORTIC ROOT: NORMAL LEFT VENTRICULAR WALL MOTION: NORMAL. DOPPLER/COLOR FLOW: NORMAL. COMMENTS: NORMAL 2D ECHO WITH DOPPLER. TECHNOLOGIST: MINAL HUNT
[2017-08-07] MEDS ORDERED: REGADENOSON 0.4 MG/5 ML SYR IV ONE (08:54)
[2017-08-07] MEDS ORDERED: ASPIRIN EC 81 MG TAB PO SCH (09:00)
--- NOTE | 2017-08-07 10:23 | P.DS ---
Admission Date: 08/06/17 Discharge Date: 08/07/17 Primary Care Provider: None(Visiting from [place], [place]) Disposition: ROUTINE DISCHARGE Discharge Condition: GOOD Reason for Admission: Chest pain Consultations: Cardiology: Dr. Cobb Procedures: Echocardiogram: Ejection fraction 60% otherwise unremarkable. Cardiac stress test: No stress-induced ischemia. - Problems (1) Chest pain Onset Date: 08/07/17 Current Visit: Yes Status: Acute Qualifiers: Chest pain type: unspecified Qualified Code(s): R07.9 - Chest pain, unspecified (2) CAD (coronary artery disease) Onset Date: 08/07/17 Current Visit: Yes Status: Chronic Qualifiers: Coronary Disease-Associated Artery/Lesion type: unspecified vessel or lesion type [place] vs. transplanted heart: unspecified whether [place] or transplanted heart Associated angina: angina presence unspecified Qualified Code(s): I25.10 - Atherosclerotic heart disease of [place] coronary artery without angina pectoris (3) GERD (gastroesophageal reflux disease) Current Visit: Yes Status: Suspected Qualifiers: Esophagitis presence: esophagitis presence not specified Qualified Code(s) : K21.9 - Gastro-esophageal reflux disease without esophagitis Brief History of Present Illness: 47-year-old female presented emergency room with chest pain. The patient reported chest pain this morning. The chest pain was mainly to the left side. It felt like pen and needles. It was sharp. It was associated with some headaches. She denied any significant nausea, vomiting, lightheadedness or shortness of breath. There was no radiation. The chest pain lasted for several min. Patient is visiting in the area. Patient reports a history of CAD in the past. She had a heart catheterization 10 years ago while she was incarcerated. She was told that she had some disease but no stent was required. Patient came to the ER. In the ER she was given nitro. Chest pain improved. Vital signs stable. On lab initial troponin unremarkable at <0.03. BNP 138. GFR 82. Glucose 105, white count 5.6, hemoglobin 12. Due to the nature of her symptoms the patient was admitted for observation. When I saw the patient, she was without any chest pain. Patient reports a history of CAD without any stent needed about 10 years ago while she was incarcerated. Patient reports only taking aspirin daily. She does not smoke or drink. There is a family history of heart disease. Hospital Course: Patient presented with atypical chest pain by Cardiology. Echocardiogram unremarkable with ejection fraction of 60%. Cardiology recommended cardiac stress test. Cardiac stress test showed no stress-induced ischemia. Fasting lipid panel and thyroid panel unremarkable. Patient without chest pain at this time. Patient will continue with aspirin 325 mg daily. Patient may follow up with cardiology as an outpatient further monitor. Patient may have underlying GERD. Patient started on Protonix 40 mg 1 pill once daily. Patient may benefit with GI evaluation as an outpatient. Vital Signs/Physical Exam: Temp Pulse Resp BP Pulse Ox 97.3 F 70 16 132/70 100 08/07/17 08:00 08/07/17 08:00 08/07/17 08:00 08/07/17 08:00 08/07/17 08:00 General: Alert, In no apparent distress, Oriented x3, Cooperative HEENT: Atraumatic, Mucous membr. moist/pink Neck: Supple, No Thyromegaly Respiratory: Clear to auscultation bilaterally, Normal air movement Cardiovascular: Normal pulses, Regular rate/rhythm Gastrointestinal: Normal bowel sounds, Soft and benign, Non-distended, No tenderness, No masses, No rebound, No guarding Musculoskeletal: No erythema, No tenderness, No warmth Integumentary: No tenderness/swelling, No erythema, No warmth, No cyanosis Neurological: Normal speech, Normal strength at 5/5 x4 extr, Normal tone, Normal affect Lymphatics: No axilla or inguinal lymphadenopathy Laboratory Data at Discharge: WBC 3.8 K/uL (4.3-10.9) L D 08/07/17 06:21 Hgb 12.4 g/dL (12.0-15.0) 08/07/17 06:21 Hct 36.0 % (36.0-45.0) 08/07/17 06:21 Plt Count 181 K/uL (152-406) 08/07/17 06:21 Sodium 134 mEq/L (135-145) L 08/07/17 06:21 Potassium 4.7 mEq/L (3.6-5.0) 08/07/17 06:21 BUN 16 mg/dL (6-20) 08/07/17 06:21 Creatinine 0.78 mg/dL (0.44-1.00) 08/07/17 06:21 Glucose 97 mg/dL (65-120) 08/07/17 06:21 Magnesium 2.1 mg/dL (1.8-2.5) 08/07/17 06:21 Troponin I < 0.03 ng/mL (<0.03) 08/07/17 00:20 B-Natriuretic Peptide 138 pg/ml (<=100) H 08/06/17 09:30 Triglycerides 93 mg/dL (35-160) 08/07/17 06:21 Cholesterol 137 mg/dL (<200) 08/07/17 06:21 HDL Cholesterol 45 mg/dL (29-89) 08/07/17 06:21 Cholesterol/HDL Ratio 3.04 08/07/17 06:21 Home Medications: Aspirin [Aspirin EC 325 MG] 325 mg PO DAILY 08/06/17 Pantoprazole [Protonix Tab*] 40 mg PO DAILY #30 tab 08/07/17 New Medications: Pantoprazole [Protonix Tab*] 40 mg PO DAILY #30 tab Patient Discharge Instructions: 1. Patient will follow up with her PCP to follow up this hospitalization within 1 week. 2. Patient presented with atypical chest pain Cardiology. Echocardiogram unremarkable with ejection fraction of 60%. Cardiac stress test no stress-induced ischemia. Patient may continue with aspirin 325 mg 1 pill daily. Patient may follow up with cardiology as an outpatient to further monitor. 3. Patient likely has underlying GERD. Patient will continue with Protonix 40 mg 1 pill once daily. Patient may benefit with GI evaluation as an outpatient. Diet: AHA Activity: Ad tee Time spent managing pt's care (in minutes): 55
--- NOTE | 2017-08-07 10:58 | TREADPHA ---
DX: CHEST PAIN Date of Study: 08/07/17 Ht: 5 3 Wt: 174 lb 0 oz Consulting Physician: NEHA MEDICATIONS: TYNEOL, ASPIRIN, LIPITOR, LOVENOX, MORPHINE SULFATE, NITROSTAT, ZOFRAN, PROTONIX, SODIUM CHLORIDE, TRAMADOL. HISTORY: 47 YEAR OLD FEMALE HERE FOR CHEST PAIN. HISTORY OF HEART BLOCKAGE 10 YEARS AGO AND KIDNEY STONES PHYSICIAL EXAMINATION: RESTING B.P.: 144/78 RESTING H.R.: 73 RESTING EKG: NORMAL PROTOCOL: LEXISCAN EXERCISE TIME: 3:30 B.P. AT [place]AK STRESS: 139/87 IMPRESSION: LEXISCAN STRESS TEST PERFORMED. CARDIOLITE INJECTED PER PROTOCOL. NO ARRHYTHMIAS NOTED. DENIES ANY CHEST PAIN. SEE NUCLEAR MEDICINE REPORT. NON DIAGNOSTIC EKG WITH LEXISCAN STRESS.
--- NOTE | 2017-08-07 12:10 | RAD REPORT ---
EXAM DESCRIPTION: NM - Rest Stress Cardiac Imaging - 08/07/2017 11:56 am CLINICAL HISTORY: Chest pain COMPARISON: None. TECHNIQUE: The patient was administered 10.9 mCi of Tc 99m Sestamibi prior to resting SPECT imaging of the heart. The patient was then administered 31.5 mCi of Tc 99m Sestamibi following exercise or ph armacologic stress. Multiplanar SPECT images were reviewed. FINDINGS: The end diastolic volume is 103 ml, the end systolic volume is 48 ml, and the ejection fra ction is 53 %. No stress-induced ischemic change identifiable. There is thinning at the apex and anterior wall at th e apex not clearly different between rest and stress imaging. IMPRESSION: No stress-induced ischemia. Thinning at the apex that could be scarring or normal thinning of myocardium. Ventricular volumes and ejection fraction are normal range.
[2017-08-07 12:15] VITALS: BP 106/67; TEMP 98.2
== END 2017-08-07 14:11 | disposition home or self-care (01) ==
LOC: ER 09:01 → ERHOLD 10:24 → 4TH 12:56
PROVIDERS: ADMIT Family Medicine; ATTEND Family Medicine
DX: R07.9 Chest pain, unspecified (principal); I25.10 Atherosclerotic heart disease of native coronary artery without angina pectoris; K21.9 Gastro-esophageal reflux disease without esophagitis
CPT/HCPCS: 36415; 71045; 78452; 80048; 80061; 81003; 81025; 82550; 82553; 83735; 83880; 84439; 84443; 84484; 85025; 93005; 93017; 93306; 99285; A9500; G0378; J1650; J2405; J2785